=== PATIENT | female | born 1955 | race Caucasian/White ===

== ENCOUNTER 2020-09-12 13:00 | Outpatient (CLI) | payer BC, MEDICARE | END 2020-09-12 23:59 | disposition home or self-care (01) | LOC: D.MAMMO 13:00 | PROVIDERS: ATTEND Emergency Medicine | DX: Z12.31 Encounter for screening mammogram for malignant neoplasm of breast (principal) ==

== ENCOUNTER 2020-09-26 05:22 | Day surgery (SDC) | payer BC ==
[~2020-09-26] VITALS: Ht 154.9 cm; Wt 78.9 kg
--- NOTE | ~2020-09-26 | OP ---
PATIENT NAME: SANTY LOO MEDICAL RECORD: [id number] :55 LOCATION:[facility] ADMISSION DATE: SURGEON: GORDO MELISSA MD DATE OF OPERATION: 09/26/2020 PREOPERATIVE DIAGNOSES: 1. Ventral hernia. 2. Gastroesophageal reflux disease. 3. Dysphagia. POSTOPERATIVE DIAGNOSES: 1. Ventral hernia. 2. Gastroesophageal reflux disease. 3. Dysphagia. PROCEDURE: Ventral hernia repair with 4.[address] mesh. SURGEON: Gordo Melissa MD REPORT OF PROCEDURE: The patient's abdomen was prepped and draped in sterile fashion. A semicircular incision was made on the inferior aspect of the umbilicus. Electrocautery was used to dissect through the subcutaneous tissue. The patient had a hernia sac that was extending down below the umbilicus and this was freed up from the underlying tissues. We eventually transected the hernia sac at the fascial edge. Once the fascial edges were all cleared off, we could see that the defect was about 2.5 cm wide. I cleared off the fatty tissue on top of the fascia and then cleared off any of the tissue on the undersurface of the fascia. A 4.[address] mesh was inserted in an underlay fashion. This was sutured down on all 4 sides with interrupted 0 Prolenes. We then irrigated out the wound bed. The fascia was closed transversely over the mesh using a running 0 Vicryl. The umbilicus was tacked down using a single interrupted 3-0 Vicryl. The subcutaneous tissues were reapproximated with interrupted 3-0 Vicryl and then infused with 10 mL of 0.25% Marcaine with epinephrine. The skin incisions were closed with subcutaneous 5-0 Monocryl and dressed appropriately. COMPLICATIONS: None. CONDITION: Stable. ANESTHESIA: General endotracheal and local. BLOOD LOSS: Minimal. TRANSINT:[id number] Voice Confirmation ID: [id number] DOCUMENT ID: [id number] GORDO MELISSA MD CC: KITA LA MD [id number] DICTATION DATE: 09/26/20 0856 JUDICIAL CLERK: 09/26/20 0946 [facility] [address] [place] [address]
[~2020-09-26 05:22] MED LIST: FAMOTIDINE10 MG
[2020-09-26 05:54] LABS: BASOPHILS 0.9 % (0-2); EOSINOPHILS 2.7 % (0-7); HEMATOCRIT 39.8 % (36.0-48.0); HEMOGLOBIN 13.4 g/dL (12-16); LYMPHOCYTES 24.5 % (15-50); MCH 29.3 pg (26.0-34.0); MCHC 33.7 g/dL (31.0-37.0); MCV 86.8 fL (80.0-100.0); MEAN PLATELET VOLUME 9.4 fL (7.4-10.4); MONOCYTES 9.5 % (2-11); NEUTROPHILS 62.4 % (40-80); PLATELET COUNT 214 10x3/uL (130-400); RBC 4.58 10x6/uL (4.00-5.40); RDW 15.1 % (11.5-14.5); WBC 6.1 10x3/uL (4.8-10.8)
[2020-09-26 06:26] LABS: CALC OSMOLALITY 289 mosm/kg (275-300); CARBON DIOXIDE 28.2 mmol/L (21.0-32.0); CHLORIDE - SERUM 108 mmol/L (98-107); CREATININE - SERUM 0.7 mg/dL (0.6-1.3); GLUCOSE 121 mg/dL (74-106); POTASSIUM - SERUM 4.1 mmol/L (3.5-5.1); SODIUM 145 mmol/L (136-145); UREA NITROGEN 12 mg/dL (7-18); eGFR NON AFRICAN AMERICAN 89 mL/min (90-120)
[2020-09-26 06:27] VITALS: BP 143/85; Ht 154.9 cm; Wt 78.9 kg
[2020-09-26] MEDS ORDERED: HYDROCODON-ACE1 EA10 PO (08:55)
--- NOTE | 2020-09-26 11:35 | NUR ---
1105 - UP TO BATHROOM TO VOID. NO DIFFICULTIES NOTED.
--- NOTE | 2020-09-26 11:35 | NUR ---
1115 - IV D/C'D WITH TIP INTACT
--- NOTE | 2020-09-26 11:36 | NUR ---
1130 - DISCHARGED VIA WHEELCHAIR TO PRIVATE CAR.
== END 2020-09-26 11:30 | disposition home or self-care (01) ==
LOC: D.OPS 05:22
PROVIDERS: ATTEND Surgery
DX: K43.9 Ventral hernia without obstruction or gangrene (principal); K21.9 Gastro-esophageal reflux disease without esophagitis; R13.10 Dysphagia, unspecified